=== PATIENT | female | born 1985 | race Caucasian/White ===

== ENCOUNTER 2022-05-14 20:43 | Emergency (ER) | payer SELFPAY ==
[~2022-05-14] VITALS: Ht 160 cm; Wt 60.9 kg
[2022-05-14] MEDS ORDERED: HYDROCODONE/ACETAMINOPHEN 5/325MG TABLET PO ONE (23:30)
[2022-05-14] MEDS ORDERED: LIDOCAINE HCL/EPINEPHRINE 1%-EPI 1:100,000 20 ML VIAL INFIL ONE (23:30)
[2022-05-14] MEDS ORDERED: BACITRACIN ZINC OINT UDPKT TOP ONE (23:30)
[2022-05-14] MEDS ORDERED: TETANUS, DIPHTHERIA, PERTUSSIS VAC/PF 0.5ML (>10YR OLD) IM ONE (23:30)
[2022-05-15] MEDS ORDERED: IBUP-2029 PO (01:43)
[2022-05-15 02:15] VITALS: BP 110/70
== END 2022-05-15 02:19 | disposition home or self-care (01) ==
LOC: ER 20:43
DX: S61.412A Laceration without foreign body of left hand, initial encounter (principal); W26.8XXA Contact with other sharp object(s), not elsewhere classified, initial encounter; Y93.89 Activity, other specified; Y92.010 Kitchen of single-family (private) house as the place of occurrence of the external cause
CPT/HCPCS: 90471; 90715; 99283; J3490; Z7610